=== PATIENT | female | born 1955 | race Caucasian/White ===

== ENCOUNTER 2019-08-12 11:03 | Emergency (ER) | payer OTHER ==
[~2019-08-12] VITALS: Ht 152.4 cm; Wt 71.3 kg
[2019-08-12 11:13] VITALS: BP 137/89
--- NOTE | 2019-08-12 11:24 | NUR ---
c/o sudden onset of left pain followed by drainage, headache & upper chest pain x yesterday denies injury. DENIES N/V/D; SKIN IS PINK WARM/DRY; AAOX4 WITH EVEN AND STEADY GAIT; LUNGS CLEAR BL; HR EVEN AND REGULAR; PT DENIES ANY FEVER OR COUGH AT THIS TIME; PATIENT STATES PAIN OF 7/10 AT THIS TIME. PATIENT POSITIONED FOR COMFORT; HOB ELEVATED; BEDRAILS UP X1; BED DOWN. ER MD MADE AWARE OF PT STATUS.
--- NOTE | 2019-08-12 11:34 | NUR ---
ER AT BEDSIDE FOR EVAL
--- NOTE | 2019-08-12 11:41 | NUR ---
Dr. Veliz evaluating patient at bedside.
[2019-08-12 12:20] VITALS: BP 138/82
--- NOTE | 2019-08-12 12:20 | NUR ---
Patient discharged with v/s stable. Written and verbal after care instructions given and explained. Patient alert, oriented and verbalized understanding of instructions. Ambulatory with steady gait. All questions addressed prior to discharge. ID band removed. Patient advised to follow up with PMD. Rx of lidocaine&cotisporin given. Patient educated on indication of medication including possible reaction and side effects. Opportunity to ask questions provided and answered.
== END 2019-08-12 12:20 | disposition home or self-care (01) ==
LOC: MED 11:03
DX: H60.92 Unspecified otitis externa, left ear (principal); R07.89 Other chest pain; Z98.890 Other specified postprocedural states; Z86.59 Personal history of other mental and behavioral disorders
CPT/HCPCS: 99283